=== PATIENT | female | born 1955 | race Caucasian/White ===

== ENCOUNTER 2017-12-27 17:02 | Emergency (ER) | payer BC ==
[~2017-12-27] VITALS: Ht 170.2 cm; Wt 77.3 kg
[2017-12-27 17:05] VITALS: BP 166/93
== END 2017-12-27 19:43 | disposition home or self-care (01) ==
LOC: ED 19:26
DX: S00.33XA Contusion of nose, initial encounter (principal); S00.531A Contusion of lip, initial encounter; S80.211A Abrasion, right knee, initial encounter; S60.512A Abrasion of left hand, initial encounter; I10 Essential (primary) hypertension; W19.XXXA Unspecified fall, initial encounter; Y93.89 Activity, other specified; Y92.512 Supermarket, store or market as the place of occurrence of the external cause; Y99.8 Other external cause status
CPT/HCPCS: 70486; 99284